=== PATIENT | male | born 1960 | race Caucasian/White ===

== ENCOUNTER 2019-07-29 19:32 | Emergency (ER) | payer OTHER ==
[~2019-07-29] VITALS: Ht 172.7 cm; Wt 90.6 kg
[2019-07-29 19:32] VITALS: BP 159/90
[2019-07-29] MEDS ORDERED: OSTETAB2 PO (19:46)
[2019-07-29] MEDS ORDERED: NAPR-837 PO (20:13)
[2019-07-29] MEDS ORDERED: ROBA750T4 PO (20:13)
[2019-07-29] MEDS ORDERED: methocarbamoL 750 MG TAB PO ONE (20:15)
== END 2019-07-29 20:38 | disposition home or self-care (01) ==
LOC: M ED 19:32
DX: M62.830 Muscle spasm of back (principal)